=== PATIENT | female | born 1935 | race Asian ===

== ENCOUNTER 2019-11-20 15:34 | Emergency (ER) | payer MEDICARE, OTHER ==
[~2019-11-20] VITALS: Ht 157.5 cm; Wt 54.5 kg
[2019-11-20] MEDS ORDERED: AMLO2.5T4 PO (15:44)
[2019-11-20] MEDS ORDERED: PRAV10TA39 PO (15:44)
[2019-11-20] MEDS ORDERED: ALLO100T PO (15:44)
[2019-11-20 15:47] VITALS: BP 158/85
== END 2019-11-20 17:34 | disposition home or self-care (01) ==
LOC: EMS 15:43
DX: S00.93XA Contusion of unspecified part of head, initial encounter (principal); E78.00 Pure hypercholesterolemia, unspecified; I10 Essential (primary) hypertension; W01.0XXA Fall on same level from slipping, tripping and stumbling without subsequent striking against object, initial encounter; Y93.89 Activity, other specified; Y92.098 Other place in other non-institutional residence as the place of occurrence of the external cause; Y99.8 Other external cause status
CPT/HCPCS: 70450

== ENCOUNTER 2020-05-08 10:49 | Emergency (ER) | payer MEDICARE, OTHER ==
[~2020-05-08] VITALS: Ht 154.9 cm; Wt 56.8 kg
[~2020-05-08 10:49] MED LIST: ALLO100T PO; AMLO2.5T4 PO; PRAV10TA39 PO
[2020-05-08] MEDS ORDERED: ACETAMINOPHEN 500 MG TABLET PO ONE (11:45)
[2020-05-08 13:01] VITALS: BP 167/64
== END 2020-05-08 13:00 | disposition home or self-care (01) ==
LOC: EMS 10:50
DX: I87.2 Venous insufficiency (chronic) (peripheral) (principal); I10 Essential (primary) hypertension; E78.00 Pure hypercholesterolemia, unspecified
CPT/HCPCS: 93971

== ENCOUNTER → 2020-05-18 | Outpatient (CLI) | payer MEDICARE, OTHER ==
[~2020-05-18] MED LIST changes: -ALLO100T PO
== END | disposition home or self-care (01) ==
LOC: HBOWC 09:33
PROVIDERS: ATTEND Podiatrist
DX: I70.243 Atherosclerosis of native arteries of left leg with ulceration of ankle (principal); L97.822 Non-pressure chronic ulcer of other part of left lower leg with fat layer exposed; L97.322 Non-pressure chronic ulcer of left ankle with fat layer exposed; M10.00 Idiopathic gout, unspecified site; I10 Essential (primary) hypertension; Z98.49 Cataract extraction status, unspecified eye
CPT/HCPCS: 11042

== ENCOUNTER → 2020-05-25 | Outpatient (CLI) | payer MEDICARE, OTHER | END | disposition home or self-care (01) | LOC: HBOWC 10:53 | PROVIDERS: ATTEND Podiatrist | DX: L97.322 Non-pressure chronic ulcer of left ankle with fat layer exposed (principal); I10 Essential (primary) hypertension; I87.2 Venous insufficiency (chronic) (peripheral); M10.9 Gout, unspecified; Z98.49 Cataract extraction status, unspecified eye | CPT/HCPCS: 11042 ==

== ENCOUNTER → 2020-06-08 | Outpatient (CLI) | payer MEDICARE, OTHER | END | disposition home or self-care (01) | LOC: HBOWC 14:31 | PROVIDERS: ATTEND Podiatrist | DX: L97.322 Non-pressure chronic ulcer of left ankle with fat layer exposed (principal); I10 Essential (primary) hypertension; I87.2 Venous insufficiency (chronic) (peripheral); M10.9 Gout, unspecified; Z98.49 Cataract extraction status, unspecified eye | CPT/HCPCS: 11042 ==

== ENCOUNTER 2020-07-12 16:29 | Emergency (ER) | payer MEDICARE, OTHER ==
[~2020-07-12] VITALS: Ht 149.9 cm; Wt 43.2 kg
[~2020-07-12 16:29] MED LIST changes: -AMLO2.5T4 PO; +AMLO2.5T96 PO
[2020-07-12] MEDS ORDERED: ACETAMINOPHEN 500 MG TABLET PO ONE (17:00)
[2020-07-12 17:59] VITALS: BP 148/55
== END 2020-07-12 18:32 | disposition left against medical advice (07) ==
LOC: EMS 16:29
DX: S00.03XA Contusion of scalp, initial encounter (principal); W01.0XXA Fall on same level from slipping, tripping and stumbling without subsequent striking against object, initial encounter; Y93.89 Activity, other specified; Y92.89 Other specified places as the place of occurrence of the external cause; Y99.8 Other external cause status